=== PATIENT | male | born 1955 | race Caucasian/White ===

== ENCOUNTER 2016-08-15 13:41 | Inpatient (IN) ==
[2016-08-15] MEDS ORDERED: NS 1,000 ML IV ONE ×3 (14:46→19:37)
--- NOTE | 2016-08-15 15:27 | Diag Imaging Result Doc PS360 ---
CHEST-2 VIEWS - 08/15/2016 INDICATION: SOB TECHNIQUE: COMPARISON: None FINDINGS: The lungs are normally expanded and clear. Heart size and mediastinal contours are normal. No pneumothorax or pleural effusion. IMPRESSION: Negative exam. Electronically signed by Smith Schumacher 08/15/2016 3:24 PM
[2016-08-15 15:29] LABS: BASO% 0.4 % (0.0-0.8); EOS# 0.03 X1000 (0.0-0.7); EOS% 0.2 % (0.0-10.0); HEMATOCRIT 44.4 % (42.0-52.0); HEMOGLOBIN 15.1 g/dL (14.0-18.0); IMM GRAN# 0.06 X1000 (0.0-0.04); IMM GRAN% 0.3 % (0.0-0.5); LYMPH# 1.41 X1000 (1.2-3.4); LYMPH% 7.7 % (20.5-51.1); MANUAL DIFF NEEDED? NO; MCH 29.2 PG (27-31); MCV 85.9 FL (81-99); MONO# 1.12 X1000 (0.11-0.59); MONO% 6.1 % (1.7-9.3); MPV 11.8 FL (7.4-10.4); NEUT% 85.3 % (42.2-75.2); PLT 199 X1000 (130-400); RBC 5.17 XMIL (4.7-6.1)
[2016-08-15 15:30] LABS: ACETONE SERUM NEGATIVE (NEGATIVE)
[2016-08-15 15:48] LABS: AGAP 20; ALBUMIN 4.4 g/dL (3.5-5.0); ALKALINE PHOSPHATASE 129 U/L (32-122); AMYLASE 40 U/L (20-200); BUN 19 mg/dL (8-22); CALCIUM 9.6 mg/dL (8.8-10.2); CHLORIDE 92 mmol/L (98-107); COSMO 289; GOT 18 U/L (10-34); GPT 17 U/L (10-44); LIPASE 25 U/L (13-60); POTASSIUM 4.4 mmol/L (3.5-5.1); SODIUM 132 mmol/L (136-145); TCO2 20 mmol/L (25-35); TOTAL PROTEIN 7.2 g/dL (6.3-8.3)
[2016-08-15] MEDS ORDERED: HUMULIN R (PARKWAY) IV ONE (16:12)
[2016-08-15 17:29] LABS: URINE CULTURE PL NEEDED? NO
--- NOTE | 2016-08-15 17:49 | Diag Imaging Result Doc PS360 ---
EXAM: CT ABD/PELVIS W/ IV CONT ONLY HISTORY: vomiting, leukocytosis TECHNIQUE: CT of the abdomen with intravenous contrast and dose reduction (clarity.) COMMENT: There is some dependent atelectasis in the lung bases. There is platelike atelectasis in the left lower lobe and lingula is well. There are calcifications in the left lower lobe. There is a small hiatal hernia. There are no gallstones. The spleen and adrenal glands are not enlarged. There are granulomata in the liver. The pancreas is unremarkable. The appendix is normal in appearance. There is no evidence of bowel obstruction. There is no evidence of significant adenopathy. Kidneys are without evidence of hydronephrosis or solid mass. There is a small cyst in the lateral left kidney. There is some fluid in the stomach. There is no evidence of free air. CT of the pelvis with intravenous contrast: The urinary bladder is not particularly distended. There is no evidence of free fluid. Where the colon is distended there is no evidence of mucosal thickening. Most of the colon is not distended however. There are no apparent acute bony abnormalities. IMPRESSION: The possibility of mild gastroenteritis cannot be excluded. Electronically signed by Carlos De La Garza 08/15/2016 5:47 PM
[2016-08-15 18:03] LABS: BILIRUBIN URINE NEGATIVE (NEGATIVE); BLOOD URINE NEGATIVE (NEGATIVE); CLARITY CLEAR (CLEAR); COLOR YELLOW; LEUKOCYTES URINE NEGATIVE (NEGATIVE); NITRITE URINE NEGATIVE (NEGATIVE); PROTEIN URINE NEGATIVE (NEGATIVE); SP GRAVITY URINE 1.005; UROBILINOGEN URINE NORMAL
[2016-08-15 18:09] LABS: URINE EPITHELIAL CELLS <10 /HPF (<10); URINE RBC <10 /HPF (<10); URINE SOURCE CLEAN CATCH; URINE WBC <10 /HPF (<10)
[2016-08-15 18:41] LABS: BE -5.7 mmoll (-3.0-3.0); BLOOD TYPE ARTERIAL; METHB 1.5 % (0.0-1.5); O2(CT) 19.3 mL/dL (15.0-23.0); PCO2(98.6) 32 mmHg (35-45); PO2(98.6) 96 mmHg (60-100); SAMPLE BLOOD; SAO2 98.5 % (95.0-100.0); THB 14.4 g/dL (11.5-17.4); pH(98.6) 7.37 (7.35-7.45)
[2016-08-15 18:44] LABS: ALLEN TEST YES; DRAW SITE L RADIAL; MODALITY ROOM AIR
[2016-08-15] MEDS ORDERED: HUMULIN R IV ONE (19:16)
--- NOTE | 2016-08-15 19:17 | PROVIDER DOCUMENTATION ---
This chart was entered by Miriam Laboy Scribe, acting as scribe for Soledad Pedro PA. HPI-General Adult - General Source: patient - History of Present Illness -Gen Adult Nature of Presenting Problems: 61 yo M presents to the ER with complaint of elevated blood sugar this morning. Pt has an insulin pump, states he changed the site yesterday as directed. When he woke up this morning he had a sugar of 400, gave himself 20 units, then went to eat breakfast and gave himself another 20 units. Checked his blood sugar and it was over 400. States he typically gives himself 70-80 units daily and he has already given himself 120 units. Thinks he may have put the pump where he has scar tissue. Pt is slightly diaphoretic upon arrival, states he had 1 episode of vomiting and mild SOB. Onset/Duration: reports: this morning - Diabetes Related Context Context: reports: high blood sugar <Soledad Pedro - Last Filed: 08/15/16 19:32> - General Source: patient <Pati Ruiz - Last Filed: 08/16/16 13:22> - General Chief Complaint: High Blood Sugar Stated Complaint: BLOOD SUGAR PROB Time Seen by Provider: 08/15/16 14:45 Allergies/Adverse Reactions: Patient Allergies Allergy/AdvReac Type Severity Reaction Status Date / Time No Known Allergies Allergy Verified 04/26/13 05:36 Home Medications: Home Medication List Medication Instructions Recorded Confirmed Last Taken Type Losartan Potassium 100 mg PO DAILY 04/26/13 08/16/16 08/15/16 History Aspirin [Aspir-Low] 81 mg PO DAILY 08/16/16 08/16/16 08/15/16 History Insulin Lispro [Humalog] 100 unit SQ DIRECTED 08/16/16 08/16/16 08/16/16 History Review of Systems - Adult - REVIEW OF SYSTEMS - ADULT Constitutional: denies: chills, fever Eyes: reports: no symptoms reported Ears, Nose, Mouth & Throat: reports: no symptoms reported Cardiovascular: denies: chest pain, palpitations Respiratory: denies: cough, shortness of breath Gastrointestinal: reports: vomiting. denies: abdominal pain, diarrhea, nausea Genitourinary: reports: no symptoms reported Musculoskeletal: reports: no symptoms reported Integumentary: reports: no symptoms reported Neurological: reports: no symptoms reported Psychiatric: reports: no symptoms reported Endocrine: reports: no symptoms reported Hematologic/Lymphatic: reports: no symptoms reported Allergic/Immunologic: reports: no symptoms reported All Other Systems: Reviewed and Negative <Willis,Soledad JusAtul - Last Filed: 08/15/16 19:32> - REVIEW OF SYSTEMS - ADULT Constitutional: reports: no symptoms reported <Pati Ruiz - Last Filed: 08/16/16 13:22> Past History - Adult - PAST MEDICAL HISTORY-ADULT Review of Records: reports: Nursing Assessment Review, Medications Reviewed Cardiovascular: reports: HTN, hyperlipidemia Endocrine/Immune: reports: Diabetes - IMMUNIZATION STATUS Childhood Immunizations: See Nurse Assessment Flu Vaccine: See Nurse Assessment <WillisNissaSoledad JusAtul - Last Filed: 08/15/16 19:32> - PAST MEDICAL HISTORY-ADULT Review of Records: reports: Old Records Reviewed <Pati Ruiz - Last Filed: 08/16/16 13:22> Physical Exam-General - PHYSICAL EXAM-ADULT Initial Vital Signs Reviewed: Yes - CONSTITUTIONAL General Appearance: alert, no apparent distress - EYES Eyes: PERRL/EOMI, pink conjunctivae - HEAD, EARS, NOSE, MOUTH & THROAT HENMT: normocephalic/atraumatic, normal ENT inspection - NECK Neck: supple, normal inspection - RESPIRATORY Respiratory: no respiratory distress, no accessory muscle use - CARDIOVASCULAR Cardiovascular: normal peripheral pulses, regular rate, rhythm - GASTROINTESTINAL (ABDOMEN) Abdominal Exam: normal bowel sounds, non tender, soft - MUSCULOSKELETAL Back Exam: no CVA tenderness, no vertebral tenderness Extremity: normal gait, normal inspection - SKIN Integumentary: normal color, diaphoresis (head/hair) - NEUROLOGIC Neurologic: grossly normal, no motor/sensory deficits - PSYCHIATRIC Psych/Mental Status: normal mood/affect, normal thought content, normal thought process, oriented x 3 <Nissa Pedroherine JusAtul - Last Filed: 08/15/16 19:32> - CONSTITUTIONAL General Appearance: appears well <Pati Ruiz - Last Filed: 08/16/16 13:22> Progress - PLAN OF CARE/RESULTS Progress/Plan/Lab Results: Vital Signs - 8 hr 08/15/16 13:55 Temperature 98 F Pulse Rate 72 Respiratory Rate 18 Blood Pressure 112/60 O2 Sat by Pulse Oximetry 97 Laboratory Results - last 24 hr 08/15/16 13:58 POC Glucose 346 H Orders Category Date Time Status Saline Loc DIRECTED Care 08/15/16 14:45 Active NPO Diet 08/15/16 14:45 Active ACETONE SERUM [CHEM] Stat Lab 08/15/16 14:45 Ordered AMYLASE [CHEM] Stat Lab 08/15/16 14:45 Ordered CBC WITH ELECTRONIC DIFF [HEME] Stat Lab 08/15/16 14:45 Ordered COMPREHENSIVE METABOLIC PANEL [CHEM] Stat Lab 08/15/16 14:45 Ordered LIPASE [CHEM] Stat Lab 08/15/16 14:[address] W/POSS RFLX CULT [URINALYSIS] Stat Lab 08/15/16 14:45 Uncollected 0.9% Sodium Chloride Inj [Ns] 1,000 ml Med 08/15/16 14:46 Active IV 999 mls/hr Result Diagrams: 08/15/16 15:05 08/15/16 15:05 - XRAY 1 XRAY Study: Chest Impression: Normal (negative exam. Per radiologist) - CT/MRI 1 CT Study: Abdomen, Pelvis Impression: See EMR Report (The possibility of mild gastroenteritis cannot be excluded. -per Dr. Schumacher) - CONSULTS/PCP/HOSPITALIST Notification #1 *Consult/PCP/Hospitalist*: Dr. Ledesma Time Discussed: 19:33 Reason/Comments: leukocytosis, hyperglycemia Consult Disposition: Admit <WillisSoledad A. - Last Filed: 08/15/16 19:32> - PLAN OF CARE/RESULTS Progress/Plan/Lab Results: Laboratory Results - last 24 hr 08/15/16 08/15/16 08/15/16 13:58 15:05 15:05 WBC 18.36 H RBC 5.17 Hgb 15.1 Hct 44.4 MCV 85.9 MCH 29.2 MCHC 34.0 RDW Std Deviation 13.0 Plt Count 199 MPV 11.8 H Immature Gran % (Auto) 0.3 Neut % (Auto) 85.3 H Lymph % (Auto) 7.7 L [place] % (Auto) 6.1 Eos % (Auto) 0.2 Baso % (Auto) 0.4 Immature Gran # (Auto) 0.06 H Neut # (Auto) 15.67 H Lymph # (Auto) 1.41 [place] # (Auto) 1.12 H Eos # (Auto) 0.03 Baso # (Auto) 0.07 Specimen Type Sample Site pH pCO2 pO2 HCO3 Base Excess Oxyhemoglobin ABG O2 Sat (Calculated) ABG O2 Saturation ABG Carboxyhemoglobin ABG Methemoglobin [place] Test Total Hemoglobin Lactate Blood Gas Modality Sodium 132 L Potassium 4.4 Chloride 92 L Carbon Dioxide 20 L Anion Gap 20 BUN 19 Creatinine 1.2 Estimated GFR/1.73 m2 > 60 BUN/Creatinine Ratio 16 Glucose 507 H* POC Glucose 346 H Calculated Osmolality 289 Calcium 9.6 Total Bilirubin 1.10 H AST 18 ALT 17 Alkaline Phosphatase 129 H Creatine Kinase Troponin T Total Protein 7.2 Albumin 4.4 Globulin 3.0 Albumin/Globulin Ratio 2.0 Amylase 40 Lipase 25 Urine Source Urine Color Urine Clarity Urine pH Ur Specific [place] Urine Protein Urine Ketones Urine Blood Urine Nitrite Urine Bilirubin Urine Urobilinogen Urine Microscopic RBC Urine WBC Urine Microscopic WBC Ur Epithelial Cells Urine Bacteria Urine Glucose Acetone Level NEGATIVE 08/15/16 08/15/16 08/15/16 15:05 15:05 17:05 WBC RBC Hgb Hct MCV MCH MCHC RDW Std Deviation Plt Count MPV Immature Gran % (Auto) Neut % (Auto) Lymph % (Auto) [place] % (Auto) Eos % (Auto) Baso % (Auto) Immature Gran # (Auto) Neut # (Auto) Lymph # (Auto) [place] # (Auto) Eos # (Auto) Baso # (Auto) Specimen Type Sample Site pH pCO2 pO2 HCO3 Base Excess Oxyhemoglobin ABG O2 Sat (Calculated) ABG O2 Saturation ABG Carboxyhemoglobin ABG Methemoglobin [place] Test Total Hemoglobin Lactate Blood Gas Modality Sodium Potassium Chloride Carbon Dioxide Anion Gap BUN Creatinine Estimated GFR/1.73 m2 BUN/Creatinine Ratio Glucose POC Glucose Calculated Osmolality Calcium Total Bilirubin AST ALT Alkaline Phosphatase Creatine Kinase 132 Troponin T < 0.010 Total Protein Albumin Globulin Albumin/Globulin Ratio Amylase Lipase Urine Source CLEAN CATCH Urine Color YELLOW Urine Clarity CLEAR Urine pH 6.0 Ur Specific [place] 1.005 Urine Protein NEGATIVE Urine Ketones 2+(Moderate) A Urine Blood NEGATIVE Urine Nitrite NEGATIVE Urine Bilirubin NEGATIVE Urine Urobilinogen NORMAL Urine Microscopic RBC <10 Urine WBC NEGATIVE Urine Microscopic WBC <10 Ur Epithelial Cells <10 Urine Bacteria NEGATIVE Urine Glucose 3+(500 mg/dL) A Acetone Level 07/11/17 07/11/17 07/11/17 17:40 18:19 19:54 WBC RBC Hgb Hct MCV MCH MCHC RDW Std Deviation Plt Count MPV Immature Gran % (Auto) Neut % (Auto) Lymph % (Auto) [place] % (Auto) Eos % (Auto) Baso % (Auto) Immature Gran # (Auto) Neut # (Auto) Lymph # (Auto) [place] # (Auto) Eos # (Auto) Baso # (Auto) Specimen Type ARTERIAL Sample Site L RADIAL pH 7.37 pCO2 32 L pO2 96 HCO3 20.4 Base Excess -5.7 L Oxyhemoglobin 95.1 ABG O2 Sat (Calculated) 19.3 ABG O2 Saturation 98.5 ABG Carboxyhemoglobin 2.00 ABG Methemoglobin 1.5 [place] Test YES Total Hemoglobin 14.4 Lactate 1.40 Blood Gas Modality ROOM AIR Sodium Potassium Chloride Carbon Dioxide Anion Gap BUN Creatinine Estimated GFR/1.73 m2 BUN/Creatinine Ratio Glucose POC Glucose 350 H 295 H Calculated Osmolality Calcium Total Bilirubin AST ALT Alkaline Phosphatase Creatine Kinase Troponin T Total Protein Albumin Globulin Albumin/Globulin Ratio Amylase Lipase Urine Source Urine Color Urine Clarity Urine pH Ur Specific [place] Urine Protein Urine Ketones Urine Blood Urine Nitrite Urine Bilirubin Urine Urobilinogen Urine Microscopic RBC Urine WBC Urine Microscopic WBC Ur Epithelial Cells Urine Bacteria Urine Glucose Acetone Level Orders Category Date Time Status Admit - [facility] Routine AdmDCTranf 08/15/16 19:37 Ordered Activity - Up Ad Anusha ORDERED Care 08/15/16 19:37 Active Call Admitting on Arrival AT ADMISSION Care 08/15/16 19:37 Completed FSBS [Finger Stick Blood Sugar (ED)] DIRECTED Care 08/15/16 18:50 Completed Neurological Check PRN Care 08/15/16 19:37 Active Saline Loc DIRECTED Care 08/15/16 14:45 Completed Vital Signs Order Q 8-HR ASSESS Care 08/15/16 19:37 Active Diabetic Diet Diet 08/15/16 19:38 Active NPO Diet 08/15/16 14:45 Completed CHEST-2 VIEWS [RAD] Stat Exams 08/15/16 15:[address] ABD/PELVIS W/ IV CONT ONLY [CT] Stat Exams 08/15/16 16:12 Completed ABG [RESP] Routine Lab 08/15/16 18:19 Completed ACETONE SERUM [CHEM] Stat Lab 08/15/16 15:05 Completed AMYLASE [CHEM] Stat Lab 08/15/16 15:05 Completed CBC WITH DIFF [HEME] Stat Lab 08/16/16 05:33 Completed CBC WITH ELECTRONIC DIFF [HEME] Stat Lab 08/15/16 15:05 Completed CK PROFILE [SP CHEM] Stat Lab 08/15/16 15:05 Completed CMP [COMPREHENSIVE METABOLIC PANEL] [CHEM] Stat Lab 08/16/16 05:33 Completed COMPREHENSIVE METABOLIC PANEL [CHEM] Stat Lab 08/15/16 15:05 Completed LIPASE [CHEM] Stat Lab 08/15/16 15:05 Completed TROPONIN T Stat Lab 08/15/16 15:[address] W/POSS RFLX CULT [URINALYSIS] Stat Lab 08/15/16 17:05 Completed 0.9% Sodium Chloride Inj [Ns] 1,000 ml Med 08/15/16 20:47 Discontinued .ROUTE As Directed 0.9% Sodium Chloride Inj [Ns] 1,000 ml Med 08/15/16 19:37 Discontinued IV 75 mls/hr 0.9% Sodium Chloride Inj [Ns] 1,000 ml Med 08/15/16 14:46 Discontinued IV 999 mls/hr 0.9% Sodium Chloride Inj [Ns] 1,000 ml Med 08/15/16 16:12 Discontinued IV 999 mls/hr Insulin Human Regular ([place] [Humulin R ([place])] Med 08/15/16 19:26 Discontinued 1 units .ROUTE .STK-MED ONE Insulin Human Regular ([place] [Humulin R ([place])] Med 08/15/16 16:12 Discontinued 10 units IV NOW ONE Insulin Human Regular [Humulin R] Med 08/15/16 19:16 Discontinued 5 unit IV NOW ONE EKG [EKG] Stat Ther 08/15/16 15:10 Ordered Transfer/Admit Order [TRANSFER] Routine Transfer 08/15/16 19:36 Completed Result Diagrams: 08/16/16 05:33 08/16/16 05:33 <Pati Ruiz X - Last Filed: 08/16/16 13:22> Departure - Departure Date of Disposition Decision: 08/15/16 Time of Disposition Decision: 19:33 Certified Medical Emergency: Emergent - Critical Care Note This patient required my direct & personal management of CC.: No <Soledad Pedro - Last Filed: 08/15/16 19:32> - Departure Date of Disposition Decision: 08/15/16 Time of Disposition Decision: 19:33 Certified Medical Emergency: Emergent - Critical Care Note This patient required my direct & personal management of CC.: No <Pati Ruiz - Last Filed: 08/16/16 13:22> - Departure DIAGNOSIS: Hyperglycemia, Gastroenteritis Leukocytosis Qualifiers: Leukocytosis type: unspecified Qualified Code(s): D72.829 - Elevated white blood cell count, unspecified Disposition: ADMITTED INPATIENT 09 Condition: Stable Attestation - Physician/ EDMUND Attestation Patient care was provided by Advanced Practice Provider:: Yes Advanced Practice Provider:: Soledad Pedro Advanced Practice Provider documentation review:: The Mid-level provider documentation, treatment plan and medical decision making was reviewed by the physician who agrees with all treatment and medical decision making by the MLP. <Soledad Pedro - Last Filed: 08/15/16 19:32> This chart was documented by the indicated scribe, (Miriam Laboy Scribe) and accurately reflects the services I performed and decisions made by me, Soledad Pedro PA, as attested by the provider's signature.
[2016-08-15] MEDS ORDERED: HUMULIN R (PARKWAY) ONE (19:26)
[2016-08-15] MEDS ORDERED: NS 1,000 ML ONE (20:47)
[2016-08-16 06:50] LABS: BASO% 0.2 % (0.0-0.8); EOS# 0.01 X1000 (0.0-0.7); HEMATOCRIT 42.7 % (42.0-52.0); HEMOGLOBIN 14.2 g/dL (14.0-18.0); IMM GRAN# 0.08 X1000 (0.0-0.04); IMM GRAN% 0.4 % (0.0-0.5); LYMPH# 2.52 X1000 (1.2-3.4); LYMPH% 12.5 % (20.5-51.1); MANUAL DIFF NEEDED? YES; MCHC 33.3 g/dL (33-37); MCV 87.1 FL (81-99); MONO# 1.89 X1000 (0.11-0.59); MONO% 9.3 % (1.7-9.3); NEUT% 77.6 % (42.2-75.2); PLT 208 X1000 (130-400)
[2016-08-16 06:51] LABS: ALBUMIN 3.6 g/dL (3.5-5.0); CALCIUM 8.7 mg/dL (8.8-10.2); EOS 1 % (1-10); LYMPHS 15 % (21-51); MONO 4 % (1-9); POTASSIUM 4.4 mmol/L (3.5-5.1); TOTAL BILIRUBIN 1.7 mg/dL (0.20-1.00); TOTAL PROTEIN 6.3 g/dL (6.3-8.3)
[2016-08-16] MEDS ORDERED: ZOFRAN IV PRN (07:17)
[2016-08-16] MEDS: COZAAR PO SCH (11:47)
[2016-08-16 12:14] LABS: HEMOGLOBIN A1C 6.8 % (4.8-6.0)
[2016-08-16] MEDS: NS 1,000 ML IV SCH ×5 (14:03→20:24)
[2016-08-16] MEDS ORDERED: HUMULIN R IV ONE (14:35)
[2016-08-16] MEDS ORDERED: HUMULIN R DOSE (PARKWAY) IV ONE (14:35)
[2016-08-16] MEDS ORDERED: SODIUM PHOSPHATE 30 MMOL in D5W 250 ML IV PRN (14:35)
[2016-08-16] MEDS ORDERED: D50W SYRINGE IV PRN (14:35)
[2016-08-16] MEDS ORDERED: HUMULIN R 100 UNIT in NS 99 ML IV SCH (14:35)
[2016-08-16] MEDS ORDERED: MAGNESIUM SULFATE 2 GM/S.W.I. 2 GM/50 ML IVPB IV PRN (14:35)
[2016-08-16 14:39] LABS: HEMOGLOBIN 14.1 g/dL (14.0-18.0); MCH 28.8 PG (27-31); MCHC 32.8 g/dL (33-37); MCV 87.9 FL (81-99); MPV 11.1 FL (7.4-10.4); RBC 4.89 XMIL (4.7-6.1)
[2016-08-16] MEDS ORDERED: HUMULIN R (PARKWAY) 100 UNITS in NS 100 ML IV SCH (14:45)
[2016-08-16 14:55] LABS: BLOOD TYPE ARTERIAL; SAMPLE BLOOD
[2016-08-16] MEDS ORDERED: PROTONIX IV SCH (15:00)
[2016-08-16] MEDS ORDERED: SODIUM CHLORIDE 0.9% INJ SCH (15:00)
[2016-08-16 15:03] LABS: BE -12.9 mmoll (-3.0-3.0); DRAW SITE R RADIAL; METHB 1.6 % (0.0-1.5); PCO2(98.6) 28 mmHg (35-45); PO2(98.6) 69 mmHg (60-100); THB 13.9 g/dL (11.5-17.4); pH(98.6) 7.26 (7.35-7.45)
[2016-08-16 15:05] LABS: MODALITY ROOM AIR
[2016-08-16 15:07] LABS: ALLEN TEST YES
[2016-08-16 15:08] LABS: ALBUMIN 3.9 g/dL (3.5-5.0); CALCIUM 8.7 mg/dL (8.8-10.2); MAGNESIUM 2.2 mg/dL (1.5-2.7); POTASSIUM 3.8 mmol/L (3.5-5.1); TOTAL BILIRUBIN 1.3 mg/dL (0.20-1.00); TOTAL PROTEIN 6.6 g/dL (6.3-8.3)
--- NOTE | 2016-08-16 15:37 | HISTORY AND PHYSICAL ---
PRIMARY CARE PHYSICIAN: Dr. Jeremy Ospina. CHIEF COMPLAINT: "My blood sugars have been elevated". HISTORY OF PRESENT ILLNESS: This is a 61-year-old male with a history of insulin- dependent diabetes, hypertension and hyperlipidemia. He presented to the emergency room complaining of elevated blood sugars despite his insulin pump. He has even doubled his daily insulin requirements and blood sugars still remained up. He did complain of nausea and vomiting and diarrhea over the past 4-5 days stating that this has gotten worse over the last 24 hours. He denied any fever or chills, chest pain, black or bloody vomitus or black or bloody stools. PAST MEDICAL HISTORY: Insulin-dependent diabetes, hypertension, hyperlipidemia. PAST SURGICAL HISTORY: Denies. SOCIAL HISTORY: Alcohol, tobacco, or illicit drug use. ALLERGIES: No known drug allergies. HOME MEDICATIONS: 1. Aspirin 81 mg daily. 2. Losartan 100 mg daily. 3. Insulin pump as directed. REVIEW OF SYSTEMS: A 14 point review of systems is discussed with patient with pertinent positives stated in the HPI. He denied chest pain, palpitations, dizziness, syncope, cough, fever, chills, PND, orthopnea, constipation, black or bloody vomitus, black or bloody stools, hematuria, dysuria, frequency, urgency. PHYSICAL EXAMINATION: GENERAL: This is a 61-year-old male, who is sitting in the bed in mild distress. VITAL SIGNS: Blood pressure is 132/53 with a heart rate of 92, respirations are 18, temperature is 98.5 degrees with room air saturations of 97% to 98%. HEENT: Head is normocephalic, atraumatic. Pupils equal, round, react to light. EOMS are intact. Sclerae anicteric. Mucous membranes are dry. NECK: Supple with trachea midline. CARDIOVASCULAR: Regular rate and rhythm. S1, S2 appreciated. PULMONARY: Breath sounds are clear with no increased work of breathing noted. GASTROINTESTINAL: Abdomen is soft, nontender, nondistended with bowel sounds in all 4 quadrants. BACK: No CVAT. No spine tenderness. MUSCULOSKELETAL: Good range of motion of joints. EXTREMITIES: No clubbing, cyanosis. He does have some trace pretibial edema bilateral. Calves are nontender. Pulses are palpable x4. NEUROLOGIC: He is alert and oriented x3 with cranial nerves 2-12 grossly intact. DIAGNOSTICS: WBC is 18.3. It has risen to 20.2 with a BUN of 23, creatinine 1.3. Blood sugars are ranging in the 300-350 range. His hemoglobin A1c is 6.8. He was acetone negative. CT of the abdomen and pelvis revealed possibility of mild gastroenteritis. ASSESSMENT AND PLAN: This is a 61-year-old male with a history of insulin-dependent diabetes, who comes in with persistent blood sugars over 300. 1. Insulin-dependent diabetes mellitus with hyperglycemia. The patient reports elevated blood sugars despite his pump and bolusing extra insulin over the last 3-4 days. He has had increasing nausea and diarrhea. He and the nurse did re-unaccess his pump, made sure that insulin was flowing and re-accessed the pump. Blood sugars continued to rise up to the 500s. Therefore, I did repeat an acetone which was positive despite assuring the pump was functioning correctly. 2. Diabetic ketoacidosis. Labs were repeated. His CO2 has dropped and creatinine had increased to 1.3. We repeated labs; they are pending. Acetone was positive at this time. Therefore, he is being moved to ICU. He will be placed on diabetic ketoacidosis protocol. 3. Leukocytosis. His initial white blood count was 18.3. This has risen to 23.8. We will get blood cultures and urine culture, and start some broad spectrum antibiotics. 4. Possible gastroenteritis per CT scan. He will remain on nothing by mouth. We will give intravenous fluids and we will monitor. 5. History of hypertension. We will hold his oral medications. Blood pressures are staying in the 120s-130s over 50s and 60s. We will hold these medicines and monitor, and we will start medications as appropriate. 6. Acute kidney injury. This is most likely due to dehydration and diabetic ketoacidosis. We will rehydrate and trend his labs. 7. For deep vein thrombosis prophylaxis we will use Lovenox and for gastrointestinal prophylaxis we will use Protonix. Further treatments pending hospital course. Dictated by ARACELI Rangel for Reji Ledesma MD cc: ARACELI Rangel MD
[2016-08-16] MEDS: ZOSYN 3.375 GM/NS 3.375 GM/50 ML IVPB IV SCH ×2 (16:26→20:23)
[2016-08-16 19:32] LABS: CALCIUM 8.4 mg/dL (8.8-10.2); MAGNESIUM 2.2 mg/dL (1.5-2.7); POTASSIUM 3.9 mmol/L (3.5-5.1)
[2016-08-16] MEDS ORDERED: LANTUS INSULIN (PARKWAY) SUBQ ONE (21:00)
[2016-08-17] MEDS: HUMALOG DOSE (PARKWAY) SUBQ SCH ×6 (00:42→20:55)
[2016-08-17] MEDS: ZOSYN 3.375 GM/NS 3.375 GM/50 ML IVPB IV SCH ×4 (02:50→20:57)
[2016-08-17] MEDS: NS 1,000 ML IV SCH ×3 (04:09→20:57)
[2016-08-17 05:39] LABS: HEMATOCRIT 36.5 % (42.0-52.0); HEMOGLOBIN 11.9 g/dL (14.0-18.0); MCH 28.7 PG (27-31); MCHC 32.6 g/dL (33-37); MCV 88.2 FL (81-99); MPV 11.7 FL (7.4-10.4); RBC 4.14 XMIL (4.7-6.1)
[2016-08-17 05:47] LABS: AGAP 10; BUN 28 mg/dL (8-22); CHLORIDE 110 mmol/L (98-107); COSMO 288; POTASSIUM 3.8 mmol/L (3.5-5.1); SODIUM 141 mmol/L (136-145); TCO2 21 mmol/L (25-35)
[2016-08-17] MEDS: PROTONIX PO SCH (06:14)
--- NOTE | 2016-08-17 09:02 | PROGRESS NOTE ---
DATE: 08/17/2016 SUBJECTIVE: The patient notes that he is feeling much better this morning. He is having a sore throat, but he notes that drinking seems to make it better. Denies any chest pain, palpitations. Denies any GI or issues otherwise. PHYSICAL: Vital Signs: Temperature 98, pulse 76, respiratory rate 13, BP 126/64, saturation 98% on room air. General: Patient is awake, alert, currently in no respiratory distress. Pleasant to talk with. Neck: Supple. Cardiovascular: Regular rate. Chest: Relatively clear. Abdomen: Soft, obese, nondistended, nontender. Extremities: Moves all extremities. No focal changes. Skin: Warm and dry. No rashes. No edema. LABS: WBCs 15, hemoglobin and hematocrit 11 and 39. Carbon dioxide 21, glucose 119, phosphorus 2.6. ASSESSMENT: 1. Diabetic ketoacidosis, improved. Currently patient appears no longer acidotic. He is no longer nauseated. We will stop his insulin drip and change him over to insulin and will allow him to use his pump today. 2. Leukocytosis, improved. 3. Insulin-dependent diabetes with hyperglycemia, improved. We will restart his home insulin pump. 4. Gastroenteritis. Continue Zosyn. 5. Leukocytosis, improving on Zosyn. 6. Probable sepsis as noted by his acidosis, leukocytosis and gastroenteritis. 7. Hypertension, stable. 8. Acute kidney injury. Continues to improve. PLAN: We will transition patient back to the floor. Restart his insulin pump. Further orders as needed. cc: Reji Ledesma MD
[2016-08-17] MEDS: COZAAR PO SCH (09:30)
[2016-08-17] MEDS: LOVENOX SUBQ SCH (09:30)
[2016-08-17] MEDS: ASPIRIN EC PO SCH (09:30)
[2016-08-18] MEDS: HUMALOG DOSE (PARKWAY) SUBQ SCH ×4 (01:13→12:57)
[2016-08-18] MEDS: ZOSYN 3.375 GM/NS 3.375 GM/50 ML IVPB IV SCH ×3 (02:14→15:45)
[2016-08-18] MEDS: PROTONIX PO SCH (06:02)
[2016-08-18] MEDS: NS 1,000 ML IV SCH (06:02)
[2016-08-18] MEDS: LOVENOX SUBQ SCH (08:29)
[2016-08-18] MEDS: COZAAR PO SCH (08:30)
[2016-08-18] MEDS: ASPIRIN EC PO SCH (08:30)
[2016-08-18 11:34] VITALS: BP 153/80
[2016-08-18 11:42] LABS: HEMATOCRIT 36.8 % (42.0-52.0); HEMOGLOBIN 12.5 g/dL (14.0-18.0); MCH 29.4 PG (27-31); MCV 86.6 FL (81-99); MPV 10.6 FL (7.4-10.4); RBC 4.25 XMIL (4.7-6.1)
[2016-08-18 12:14] LABS: AGAP 11; ALBUMIN 3.3 g/dL (3.5-5.0); ALKALINE PHOSPHATASE 73 U/L (32-122); BUN 12 mg/dL (8-22); CALCIUM 8.2 mg/dL (8.8-10.2); CHLORIDE 101 mmol/L (98-107); COSMO 282; GOT 20 U/L (10-34); GPT 20 U/L (10-44); POTASSIUM 3.2 mmol/L (3.5-5.1); SODIUM 135 mmol/L (136-145); TCO2 23 mmol/L (25-35); TOTAL PROTEIN 5.8 g/dL (6.3-8.3)
[2016-08-18] MEDS ORDERED: KLOR-CON PO ONE (12:18)
--- NOTE | 2016-08-19 11:46 | DISCHARGE SUMMARY ---
ADMISSION DATE: 08/15/2016 DISCHARGE DATE: 08/18/2016 DIAGNOSES: 1. Diabetic ketoacidosis. 2. Leukocytosis resolved. 3. Insulin-dependent diabetes with hyperglycemia. 4. Gastroenteritis. 5. Hypertension. 6. Acute kidney injury resolved. HOSPITAL COURSE: Mr. Hodgson presented to the emergency room complaining of blood sugars over 300 per his meter as well as nausea and vomiting and diarrhea over the past 4-5 days. He denied any chest pain, palpitations, dizziness, black or bloody vomitus or stools. He was found to have a blood sugar of 507 with a sodium of 132 as well as a white count of 18.3. Blood cultures, urine cultures ordered. He was given Zosyn as well as IV hydration and admitted for further evaluation and treatment. PAST MEDICAL HISTORY: Insulin-dependent diabetes, hypertension, hyperlipidemia. PAST SURGICAL HISTORY: Denies. SOCIAL HISTORY: Denies alcohol, tobacco, or illicit drug use. ALLERGIES: No known drug allergies. HOME MEDICATIONS: Aspirin 81 mg daily, losartan 100 mg daily, an insulin pump as directed. PHYSICAL EXAMINATION: General: This is a 61-year-old male who is sitting in the bed, in no distress. Cardiovascular: Regular rate and rhythm. S1 and S2 appreciated. Pulmonary: Breath sounds are clear with no increased work of breathing noted. Gastrointestinal: Abdomen is soft, nontender, nondistended with bowel sounds in all 4 quadrants. Extremities: No clubbing, cyanosis, or edema. Calves are nontender. Pulses are palpable x4. FOLLOWUP: He is to follow up with his primary care physician in the next 1-2 weeks sooner if needed. He is being discharged home in stable condition with family members. Dictated by ARACELI Rangel for Reji Ledesma MD cc: ARACELI Rangel MD
== END 2016-08-18 17:10 | disposition home or self-care (01) ==
LOC: P.ED 13:41 → P.MEDSURG 13:41 → OBSVTOIN 20:59 → SUATTDRO 20:59 → P.ICU 08-16 14:28 → P.MEDSURG 08-17 10:33
PROVIDERS: ATTEND Family Medicine